=== PATIENT | male | born 1960 | race Caucasian/White ===

== ENCOUNTER → 2022-04-17 | Outpatient (CLI) | payer MEDICARE ==
[~2022-04-17] MED LIST: ASPI-1197 PO; BENA1TAB19 PO; BENA40TA92 PO; CITA-107 PO; FAMO20TA8 PO; HYDR-3420 PO; METO-409 PO; PRAV40TA3 PO; REGADENOSON 0.4 MG/5 ML PF SYG IVP SCH; TERA5CAP4 PO
== END | disposition home or self-care (01) ==
LOC: SHCH 07:49
PROVIDERS: ATTEND Internal Medicine Cardiovascular Disease
DX: I25.10 Atherosclerotic heart disease of native coronary artery without angina pectoris (principal); I49.5 Sick sinus syndrome; I44.7 Left bundle-branch block, unspecified; R06.02 Shortness of breath; I10 Essential (primary) hypertension; Z79.899 Other long term (current) drug therapy; Z95.0 Presence of cardiac pacemaker; Z96.611 Presence of right artificial shoulder joint
CPT/HCPCS: 78452; 96374; 93017; J2785; A9500 ×2

== ENCOUNTER 2022-08-17 06:45 | Day surgery (SDC) | payer MEDICARE ==
[2022-08-14 09:37] LABS: APPEARANCE,URINE CLEAR (CLEAR); BILIRUBIN,URINE NEGATIVE (NEGATIVE); COLOR,URINE YELLOW (YELLOW); GLUCOSE, URINE (UA) NEGATIVE (NEGATIVE); KETONES,URINE NEGATIVE (NEGATIVE); LEUKOCYTE ESTERASE ,URINE NEGATIVE Leu/uL (NEGATIVE); NITRATE,URINE NEGATIVE (NEGATIVE); OCCULT BLOOD,URINE NEGATIVE (NEGATIVE); PROTEIN,URINE 30 mg/dL (NEGATIVE); UROBILINOGEN,URINE 3 mg/dL (0.2-1.0)
[2022-08-14 09:39] LABS: MUCUS,URINE MOD LPF (None Seen); WBC,URINE 0-1 /HPF (0-1)
[2022-08-14 09:49] LABS: BASOPHILS % (AUTO) 0.5 % (0.0-5.0); EOSINOPHILS % (AUTO) 1.8 % (0.0-8.0); HEMATOCRIT 41.1 % (42-54); LYMPHOCYTES % (AUTO) 16.2 % (21.0-51.0); MEAN CORPUSCULAR HEMOGLOBIN 30.7 pg (27.0-33.0); MEAN CORPUSCULAR HGB CONC 34.3 g/dL (32.0-36.0); MEAN CORPUSCULAR VOLUME 89.5 fL (79-99); MONOCYTES % (AUTO) 5.9 % (3.0-13.0); NEUTROPHILS % (AUTO) 75.4 % (40.0-77.0); PLATELET COUNT (AUTO) 209 K/uL (130-400); RED BLOOD CELL COUNT(AUTO) 4.59 MIL/uL (4.50-6.20); RED CELL DISTRIBUTION WIDTH 12.3 % (11.0-15.5); WHITE BLOOD COUNT (AUTO) 6.2 K/uL (4.8-10.8)
[2022-08-14 10:03] LABS: INR 0.96 (0.85-1.15); PROTHROMBIN TIME 10.5 SEC (9.6-11.6)
[2022-08-14 10:05] LABS: PARTIAL THROMBOPLASTIN TIME 27.9 SEC (26.3-35.5)
[2022-08-14 10:11] LABS: B-TYPE NATRIURETIC PEPTIDE 10 pg/mL (0-100)
[2022-08-14 10:40] VITALS: BP 149/68
[2022-08-14 10:40] LABS: CREATININE 0.8 mg/dL (0.5-1.5); POTASSIUM 3.7 mmol/L (3.5-5.1)
[2022-08-17] VITALS (10 sets, daily range): BP systolic 128–164; BP diastolic 74–92
[~2022-08-17] VITALS: Ht 177.8 cm; Wt 116.7 kg
[~2022-08-17 06:45] MED LIST changes: -ASPI-1197 PO; -FAMO20TA8 PO; -METO-409 PO; +OMEP20CA12 PO; -REGADENOSON 0.4 MG/5 ML PF SYG IVP SCH
[2022-08-17] MEDS ORDERED: 0.9%NACL 1000ML 1,000 ML IV ONE (07:12)
[2022-08-17] MEDS ORDERED: HEPARIN 10,000 UNIT/10ML (1,000 UNIT/ML) VIAL ONE (09:25)
[2022-08-17] MEDS ORDERED: IOHEXOL-350 75 ML VIAL IV ONE (09:25)
[2022-08-17] MEDS ORDERED: LIDOCAINE HCL 400MG/20ML VIAL ONE (09:25)
[2022-08-17] MEDS ORDERED: NITROGLYCERIN 50MG VIAL ONE (09:25)
[2022-08-17] MEDS ORDERED: SODIUM BICARB 50MEQ 50ML VIAL 50 ML ONE (09:25)
[2022-08-17] MEDS ORDERED: MIDAZOLAM HCL 1 MG/ML 2ML VIAL ONE ×2 (09:51→10:01)
[2022-08-17] MEDS ORDERED: NICARDIPINE 25MG INJ IV ONE (09:51)
[2022-08-17] MEDS ORDERED: MEPERIDINE-PF 25 MG/ML SYG ONE ×2 (09:51→10:01)
[2022-08-17] MEDS ORDERED: 0.9%NACL 1000ML 1,000 ML IV SCH (11:00)
== END 2022-08-17 15:23 | disposition home or self-care (01) ==
LOC: DAH 06:45
PROVIDERS: ATTEND Internal Medicine Cardiovascular Disease
DX: I25.10 Atherosclerotic heart disease of native coronary artery without angina pectoris (principal); I49.5 Sick sinus syndrome; I10 Essential (primary) hypertension; K22.70 Barrett's esophagus without dysplasia; E78.5 Hyperlipidemia, unspecified; E66.9 Obesity, unspecified; Z79.82 Long term (current) use of aspirin; Z79.899 Other long term (current) drug therapy; Z68.38 Body mass index [BMI] 38.0-38.9, adult; Z79.01 Long term (current) use of anticoagulants
CPT/HCPCS: 80048; 83880; 85025; 85610; 85730; 81001; 36415; 71045; 93005; 93458; C1769; C1894 ×2; C1760; J3490 ×4; J7030; J1644 ×2; J2250 ×2; J2175 ×2; Q9967; A4215; A4222; A4221; A4663; A4216; A4606; A4223 ×3; 99156; 99157

== ENCOUNTER 2023-05-27 05:33 | Day surgery (SDC) | payer MEDICARE ==
[~2023-05-27] VITALS: Ht 177.8 cm; Wt 115.2 kg
[2023-05-27] VITALS (10 sets, daily range): BP systolic 133–178; BP diastolic 77–88; PULSE 60–65; RESP 15–19
[~2023-05-27 05:33] MED LIST changes: +ASPI-1197 PO; +BENA-8 PO; -BENA1TAB19 PO; -CITA-107 PO; +CITA10TA89 PO; +FAMO20TA8 PO; +METO-391 PO; +MULT-1192 PO; -OMEP20CA12 PO
[2023-05-27] MEDS ORDERED: 0.9%NACL 1000ML 1,000 ML IV ONE ×2 (06:08→09:17)
[2023-05-27] MEDS ORDERED: LIDOCAINE HCL 1% 20 ML VIAL ONE (07:07)
[2023-05-27] MEDS ORDERED: PROPOFOL 10 MG/ML 20ML VIAL IV ONE (07:07)
== END 2023-05-27 08:35 | disposition home or self-care (01) ==
LOC: DAH 05:33
PROVIDERS: ATTEND Internal Medicine Gastroenterology
DX: R12 Heartburn (principal); R19.7 Diarrhea, unspecified; K21.00 Gastro-esophageal reflux disease with esophagitis, without bleeding; K29.50 Unspecified chronic gastritis without bleeding; I10 Essential (primary) hypertension; E78.5 Hyperlipidemia, unspecified; I25.10 Atherosclerotic heart disease of native coronary artery without angina pectoris; F41.9 Anxiety disorder, unspecified; M81.0 Age-related osteoporosis without current pathological fracture; Z79.899 Other long term (current) drug therapy; Z98.890 Other specified postprocedural states; Z90.49 Acquired absence of other specified parts of digestive tract; Z95.0 Presence of cardiac pacemaker; Z79.82 Long term (current) use of aspirin
CPT/HCPCS: 43239; 45378; J7030 ×3; J2704; A4620; A4215 ×2; A4223; A7002; A4222; A4221; A4663; A4606; 45330; J3490